=== PATIENT | female | born 2000 | race African-American/Black ===

== ENCOUNTER 2022-06-07 23:47 | Emergency (ER) | payer OTHER ==
[2022-06-07 23:54] VITALS: BP 130/80
[2022-06-08 00:31] LABS: RAPID STREP SCREEN Negative (Negative)
[2022-06-08] MEDS ORDERED: LIDOCAINE TOPICAL 4% 50 ML BOTTLE MM STA (00:59)
--- NOTE | 2022-06-08 01:00 | ED Physician Documentation ---
History of Present Illness - Stated complaint Stated Complaint: SORE THROAT - Chief complaint Chief Complaint: Heent - History obtained from History obtained from: Patient - Additonal information Additional information: 21-year-old woman with history of chronic strep infection presents with sore throat X 3 days, Gradual onset, constant, progressive, worse with swallowing. Denies cough or rhinorrhea. Denies fever. Review of Systems Constitutional: denies: Fever Throat: reports: Sore throat Respiratory: denies: Dyspnea, Cough PD PAST MEDICAL HISTORY - Past Medical History Past Medical History: Yes Other Past Medical History: strep throat. cervical lymph node infection - Past Surgical History Past Surgical History: No - Allergies Allergies/Adverse Reactions: Allergies Allergy/AdvReac Type Severity Reaction Status Date / Time No Known Drug Allergies Allergy Verified 06/07/22 23:51 - Social History Does the pt smoke?: No Smoking Status: Never smoker PD ED PE NORMAL - Vitals Vital signs reviewed: Yes - General General: Alert and oriented X 3, No acute distress, Well developed/nourished - HEENT HEENT: Atraumatic, PERRL, EOMI, Moist mucous membranes, Pharynx benign - Neck Neck: Supple, no meningeal sign, No adenopathy - Derm Derm: Normal color, Warm and dry - Neuro Neuro: Alert and oriented X 3 Results - Vitals Vitals: Vital Signs - 24 hr 06/07/22 23:51 Temperature 36.5 C Heart Rate 90 Respiratory 16 Rate Blood Pressure 130/80 O2 Saturation 99 Oxygen O2 Source Room air - Labs Labs: Laboratory Tests 06/07/22 00:05 Group A Strep Rapid Negative PD MEDICAL DECISION MAKING - ED course ED course: 21-year-old woman presents with sore throat, strep negative. Symptomatic care provided. Return precautions given. Departure - Departure Disposition: 01 Home, Self Care Clinical Impression: Sore throat Condition: Stable Instructions: Sore Throat, Sore Throats Self Care Follow-Up: Marilu Orozco PA-C [Provider Admit Priv/Credential] - Comments: You were seen in the emergency department for sore throat and given lidocaine mouthwash. Your strep test was negative, meaning you likely don't have strep throat. Please follow-up with a primary doctor. I have provided a reference. Return to the emergency department if you have new or worsening symptoms or other concerns. Forms: Activity restrictions
== END 2022-06-08 01:23 | disposition home or self-care (01) ==
LOC: ED 23:47
DX: J02.9 Acute pharyngitis, unspecified (principal)
CPT/HCPCS: 87070; 87430; 99282; 99283

== ENCOUNTER 2023-04-01 08:00 | Outpatient (CLI) | payer OTHER ==
[2023-04-01 20:15] LABS: BACTERIAL VAGINOSIS DNA POSITIVE (NEGATIVE); CANDIDA GLABRATA DNA NEGATIVE (NEGATIVE); CANDIDA GROUP DNA NEGATIVE (NEGATIVE); CANDIDA KRUSEI DNA NEGATIVE (NEGATIVE); TRICHOMONAS VAGINALIS DNA NEGATIVE (NEGATIVE)
[2023-04-01 22:45] LABS: CHLAMYDIA TRACHOMATIS DNA NEGATIVE (NEGATIVE); NEISSERIA GONORRHOEAE DNA NEGATIVE (NEGATIVE)
== END 2023-04-01 08:15 | disposition home or self-care (01) ==
LOC: LAB.N 08:00
PROVIDERS: ATTEND Nurse Practitioner
DX: N89.8 Other specified noninflammatory disorders of vagina (principal)
CPT/HCPCS: 81514; 87491; 87591; 87661

== ENCOUNTER 2023-07-22 08:00 | Outpatient (CLI) | payer OTHER ==
[2023-07-23 19:48] LABS: BACTERIAL VAGINOSIS DNA NEGATIVE (NEGATIVE)
[2023-07-23 19:49] LABS: CANDIDA GLABRATA DNA NEGATIVE (NEGATIVE); CANDIDA GROUP DNA NEGATIVE (NEGATIVE); CANDIDA KRUSEI DNA NEGATIVE (NEGATIVE); TRICHOMONAS VAGINALIS DNA NEGATIVE (NEGATIVE)
[2023-07-23 21:18] LABS: CHLAMYDIA TRACHOMATIS DNA NEGATIVE (NEGATIVE); NEISSERIA GONORRHOEAE DNA NEGATIVE (NEGATIVE)
== END 2023-07-22 23:59 | disposition home or self-care (01) ==
LOC: LAB 08:00
PROVIDERS: ATTEND Family Medicine
DX: N89.8 Other specified noninflammatory disorders of vagina (principal); R35.0 Frequency of micturition
CPT/HCPCS: 81514; 87491; 87591; 87661

== ENCOUNTER 2023-11-15 14:45 | Outpatient (CLI) | payer OTHER ==
[2023-11-15 22:34] LABS: CHLAMYDIA TRACHOMATIS DNA NEGATIVE (NEGATIVE); NEISSERIA GONORRHOEAE DNA NEGATIVE (NEGATIVE)
[2023-11-15 23:50] LABS: BACTERIAL VAGINOSIS DNA NEGATIVE (NEGATIVE); CANDIDA GLABRATA DNA NEGATIVE (NEGATIVE); CANDIDA GROUP DNA NEGATIVE (NEGATIVE); CANDIDA KRUSEI DNA NEGATIVE (NEGATIVE); TRICHOMONAS VAGINALIS DNA NEGATIVE (NEGATIVE)
== END 2023-11-15 15:00 | disposition home or self-care (01) ==
LOC: LAB.N 14:45
PROVIDERS: ATTEND Family Medicine
DX: R30.0 Dysuria (principal); N89.8 Other specified noninflammatory disorders of vagina
CPT/HCPCS: 81514; 87086; 87491; 87591; 87661

== ENCOUNTER 2024-01-28 12:34 | Outpatient (CLI) | payer OTHER ==
[2024-01-28 21:48] LABS: CHLAMYDIA TRACHOMATIS DNA NEGATIVE (NEGATIVE); NEISSERIA GONORRHOEAE DNA NEGATIVE (NEGATIVE)
[2024-01-28 22:25] LABS: BACTERIAL VAGINOSIS DNA NEGATIVE (NEGATIVE); CANDIDA GLABRATA DNA NEGATIVE (NEGATIVE); CANDIDA GROUP DNA NEGATIVE (NEGATIVE); CANDIDA KRUSEI DNA NEGATIVE (NEGATIVE); TRICHOMONAS VAGINALIS DNA NEGATIVE (NEGATIVE)
== END 2024-01-28 12:38 | disposition home or self-care (01) ==
LOC: LAB.N 12:34
PROVIDERS: ATTEND Physician Assistant
DX: N89.8 Other specified noninflammatory disorders of vagina (principal)
CPT/HCPCS: 81514; 87491; 87591; 87661